=== PATIENT | female | born 1990 | race Caucasian/White ===

== ENCOUNTER 2022-02-24 10:47 | Emergency (ER) | payer MEDICAID ==
[~2022-02-24] VITALS: Ht 170.2 cm; Wt 70.3 kg
[2022-02-24 10:51] VITALS: BP_SYST 138
--- NOTE | 2022-02-24 11:05 | NUR ---
placed pt in room 7 Addendum: 02/24/22 at 1113 by [email or web address] pt report given to ANA Solo
--- NOTE | 2022-02-24 12:05 | NUR ---
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 pt stated she felt sharp uterus pain 7/10 prior to passing out. patient is 9 weeks assessed pt at bed side. vitals within normal limits. pt denies pain. performed ekg.
--- NOTE | 2022-02-24 12:27 | NUR ---
Dr Samaniego at pt bedside
--- NOTE | 2022-02-24 12:58 | NUR ---
Patient given written and verbal discharge instructions and verbalizes understanding. ER Dr Danette CEDEÑO discussed with patient the results and treatment provided. Patient in stable condition. ID arm band removed. NO Rx given. Patient educated on pain management and to follow up with PMD. Pain Scale . Opportunity for questions provided and answered. Medication side effect fact sheet provided.
[2022-02-24 13:09] VITALS: BP_SYST 121
== END 2022-02-24 13:09 | disposition home or self-care (01) ==
LOC: SED 10:47
DX: O26.891 Other specified pregnancy related conditions, first trimester (principal); R55 Syncope and collapse; Z3A.09 9 weeks gestation of pregnancy; Z91.040 Latex allergy status
CPT/HCPCS: 82962; 93005; 99283